=== PATIENT | female | born 1945 | race Caucasian/White ===

== ENCOUNTER 2019-02-25 07:44 | Day surgery (SDC) | payer MEDICARE, BC ==
[2019-02-25] MEDS ORDERED: Midazolam 1 MG/ML 2 ML SDV ONE (08:00)
[2019-02-25] MEDS ORDERED: Propofol 200 MG/20 ML SDV ONE (08:00)
[2019-02-25] MEDS ORDERED: fentaNYL 100 MCG/2 ML SDV ONE (08:00)
[2019-02-25] MEDS ORDERED: Lactated Ringers 1,000 ML IV SCH (08:30)
[2019-02-25] MEDS ORDERED: Atropine 0.4 MG/ML SDV ONE (10:00)
--- NOTE | 2019-02-25 13:31 | OR ---
DATE OF PROCEDURE: 02/25/2019 SURGEON: Jean Barragan MD PREOPERATIVE DIAGNOSIS: Colon cancer screening. POSTOPERATIVE DIAGNOSES: Diverticulosis, a small polyp 15 cm from the anal verge. PROCEDURES: Colonoscopy to the cecum with biopsy resection of a small polyp 15 cm from the anal verge. ANESTHESIA: IV anesthesia with monitored anesthesia care. INDICATION: This 73-year-old white female is referred for a colonoscopy for colon cancer screening. She says her last colonoscopic exam was done about 10 years ago. I counseled her for the procedure, including risks and alternatives, and she gave her informed consent to proceed. DESCRIPTION OF PROCEDURE: The patient was placed in the left lateral decubitus position. IV anesthesia was administered by the anesthesia service. Time-out was held. A rectal exam was performed, which was unremarkable. The flexible video Olympus colonoscope was introduced through her anus, up her rectum and out her colon, all the way to the cecum. En route, we saw a few scattered left-sided diverticula. There was no bleeding or inflammation associated with them. Once the cecum was reached, the scope was slowly withdrawn, examining the mucosa throughout. No additional mucosal abnormalities were noted until we reached about 15 cm from the anal verge. Here, we saw a small polyp, which was removed with the biopsy forceps. The scope was brought back into the rectum, where it was retroflexed. The distal rectum was unremarkable, except for some prominent hemorrhoids. The scope was straightened and removed. She tolerated the procedure well. Jean Barragan MD /[id number]
== END 2019-02-25 11:18 | disposition home or self-care (01) ==
LOC: JP.SDS 07:44
PROVIDERS: ATTEND Surgery
DX: Z12.11 Encounter for screening for malignant neoplasm of colon (principal); K63.5 Polyp of colon; K57.30 Diverticulosis of large intestine without perforation or abscess without bleeding; K64.9 Unspecified hemorrhoids; K21.9 Gastro-esophageal reflux disease without esophagitis; E11.9 Type 2 diabetes mellitus without complications; E78.00 Pure hypercholesterolemia, unspecified; Z88.2 Allergy status to sulfonamides; Z88.5 Allergy status to narcotic agent
CPT/HCPCS: 45380; J0461; J2250; J2704; J3010; J7120; 88305

== ENCOUNTER 2023-06-29 09:44 | Emergency (ER) | payer MEDICARE, BC | END 2023-06-29 11:21 | disposition home or self-care (01) | LOC: JP.ED 09:44 | DX: S62.350A Nondisplaced fracture of shaft of second metacarpal bone, right hand, initial encounter for closed fracture (principal); I10 Essential (primary) hypertension; Z86.19 Personal history of other infectious and parasitic diseases; Z88.2 Allergy status to sulfonamides; Z88.5 Allergy status to narcotic agent; Z79.899 Other long term (current) drug therapy; W00.0XXA Fall on same level due to ice and snow, initial encounter | CPT/HCPCS: 29125; 73130-26-RT; 73130-RT; 99283 ==

== ENCOUNTER 2023-06-30 13:24 | Emergency (ER) | payer MEDICARE, BC | END 2023-06-30 15:59 | disposition home or self-care (01) | LOC: JP.ED 13:24 | DX: S62.320D Displaced fracture of shaft of second metacarpal bone, right hand, subsequent encounter for fracture with routine healing (principal); I10 Essential (primary) hypertension; Z88.5 Allergy status to narcotic agent; Z88.2 Allergy status to sulfonamides; Z79.899 Other long term (current) drug therapy | CPT/HCPCS: 99282 ==